=== PATIENT | male | born 1985 | race Caucasian/White ===

== ENCOUNTER 2021-08-28 09:57 | Emergency (ER) | payer BC | END 2021-08-28 11:55 | disposition home or self-care (01) | LOC: JD.ED 09:57 | DX: U07.1 COVID-19 (principal) | CPT/HCPCS: 99283; 99284; U0002 ==

== ENCOUNTER 2022-12-13 07:30 | Emergency (ER) | payer BC, MEDICAID ==
[2022-12-13] MEDS ORDERED: Proparacaine 0.5% Ophth Soln 15 ML Bottle EYELF ONE (08:47)
[2022-12-13] MEDS ORDERED: Fluorescein 1 MG Ophth Strip EYELF ONE (09:01)
== END 2022-12-13 09:52 | disposition home or self-care (01) ==
LOC: JD.ED 07:30
DX: S05.02XA Injury of conjunctiva and corneal abrasion without foreign body, left eye, initial encounter (principal); Z86.16 Personal history of COVID-19
CPT/HCPCS: 99283; J3490